=== PATIENT | male | born 1980 | race Caucasian/White ===

== ENCOUNTER 2024-07-27 12:25 | Emergency (ER) | payer BC ==
[2024-07-27 13:19] LABS: #Basophils 0.08 10x3/uL (0.0-0.2); #Eosinophils 0.13 10x3/uL (0.0-0.5); #Monocytes 0.64 10x3/uL (0.0-1.1); #Neutrophils 6.81 10x3/uL (1.5-8.4); %Basophils 0.9 % (0.0-2.0); %Eosinophils 1.4 % (0.0-6.0); %Lymphocytes 17.7 % (18.0-47.0); %Monocytes 6.8 % (0.0-10.0); %Neutrophils 72.8 % (40.0-75.0); Hematocrit 43.9 % (38.8-50.0); Hemoglobin 15.7 g/dL (13.5-17.5); Mean Corpuscular HGB CONC 35.8 g/dL (32.0-36.0); Mean Corpuscular Volume 83.9 fL (81.2-95.1); Mean Platelet Volume 9.3 fL (7.4-10.4); Platelet Count 318 10x3/uL (150-450); Red Blood Cell (RBC) Count 5.23 10x6/uL (4.32-5.72); White Blood Cell (WBC) Count 9.4 10x3/uL (3.5-10.5)
[2024-07-27 13:31] LABS: ALT (SGPT) 35 U/L (8-55); AST (SGOT) 23 U/L (5-34); Albumin 4.3 g/dL (3.5-5.0); Alkaline Phosphatase 82 U/L (40-110); Anion Gap 15 mmol/L (10-20); BUN (Urea Nitrogen) 12 mg/dL (8.9-20.6); Bilirubin, Total 0.5 mg/dL (0.2-1.2); Calc. Creatinine Clearance 0 mL/min (70-130); Calcium 9.8 mg/dL (7.8-10.44); Carbon Dioxide 23 mmol/L (22-29); Chloride 108 mmol/L (98-107); Estimated GFR 97; Globulin 3.1 g/dL (2.4-3.5); Glucose 96 mg/dL (70-105); Protein, Total 7.4 g/dL (6.0-8.3); Sodium 142 mmol/L (136-145)
[2024-07-27 13:37] LABS: Troponin I Less than 0.010 ng/mL (< 0.028)
[2024-07-27] MEDS ORDERED: Meclizine HCl 25 MG TAB ONE (13:45)
[2024-07-27 15:56] LABS: Troponin I Less than 0.010 ng/mL (< 0.028)
== END 2024-07-27 16:13 | disposition home or self-care (01) ==
LOC: CSHERS 12:25
DX: R07.89 Other chest pain (principal); R42 Dizziness and giddiness; R29.700 NIHSS score 0
CPT/HCPCS: 36415; 71045; 80053; 84484; 85025; 93005